=== PATIENT | male | born 1990 | race Caucasian/White ===

== ENCOUNTER 2020-11-27 05:36 | Emergency (ER) | payer BC ==
[2020-11-27 06:30] LABS: HEMOGLOBIN 15.4 gm/dl (14.0-17.5); RED BLOOD COUNT 5.9 M/UL (4.20-5.50); WHITE BLOOD COUNT 3.1 K/UL (4.5-11.0)
[2020-11-27 06:55] LABS: BUN/CREATININE RATIO 8 (0-10)
[2020-11-27] MEDS ORDERED: TESSALON PERLE100 MG PO (08:40)
[2020-11-27] MEDS ORDERED: VENTOLIN HFA 66.7 GM INH (08:40)
[2020-11-27] MEDS ORDERED: AZITHROMYCIN250 MG PO (08:40)
[2020-11-27] MEDS ORDERED: OMEPRAZOLE40 MG PO (08:40)
[2020-11-27] MEDS ORDERED: AEROCHAMBER1 EA XX (08:40)
[2020-11-27] MEDS ORDERED: ZOFRAN ODT 4 MG4 MG PO (08:40)
[2020-11-27] MEDS ORDERED: HYDROXYCHLOROQ200 MG PO (08:46)
== END 2020-11-27 11:22 | disposition home or self-care (01) ==
LOC: ER1 05:36
PROVIDERS: Emergency Medicine
DX: U07.1 COVID-19 (principal); J12.82 Pneumonia due to coronavirus disease 2019; K92.2 Gastrointestinal hemorrhage, unspecified; J45.909 Unspecified asthma, uncomplicated; F41.9 Anxiety disorder, unspecified
CPT/HCPCS: 71045; 80053; 82550; 82553; 83605; 83690; 84484; 85025; 85610; 85730; 93005; 94664; 96374; 99285; C9113; Q9967